=== PATIENT | female | born 1955 | race Caucasian/White ===

== ENCOUNTER 2024-03-12 17:04 | Emergency (ER) | payer OTHER, SELFPAY ==
[2024-03-12 17:12] VITALS: BP 138/71
[2024-03-12] MEDS: AUGMENTIN 875 MG/125 MG 1 TABLET PO (18:58)
--- NOTE | 2024-03-12 19:02 | ED.SKININJ ---
HPI-Injury
General
Chief Complaint: Bite
Source: patient and family
Exam Limitations: none
Time Seen by Provider: 03/12/24 18:10
Nursing documentation reviewed up to this point in time: agreed with
History of Present Illness-Injury
Is this injury a work related problem?: No
Is pt an associate of [facility]?: No
Initial Injury comments:
68-year-old female scratched by cat earlier today claims she was not bitten, has a flap laceration to extensor surface of her left index finger puncture type wounds on the volar surface of her right forearm also puncture on her left wrist no fever
positive swelling no drainage has been bitten previously which got infected again she claims she was not bitten today to scratch she is unsure of her last tetanus but does not want that to be updated
Past History
Past History
ED Past Medical History: Hypercholesterolemia (diet controlled); Negative CAD, IDDM or NIDDM
Social History
Tobacco: Non-smoker
Alcohol: None
Drug: None
Living: with family
Employment: Employed
Family History
Family History: CAD (dad with MA @ 55.)
Review of Systems
Review of Systems
All Other Systems: Not applicable
Constitutional: Denies fever or fatigue
Musculoskeletal: Reports joint pain and edema
Skin: Reports other (Laceration)
Hematologic/Lymphatic: Reports no symptoms
Phy Exam
Physical Exam
Physical Exam:
Physical Exam
General: no apparent distress, not acutely ill
Neck: No jaundice
Heart: s1/s2 regular rate and rhythm, no murmur. equal radial pulses.
Lungs: no acute respiratory distress. clear bilaterally
Neuro: alert and oriented. no focal neurological deficits
Skin: no rash
Psychiatric: well kept. interactive and cooperative
Extremities: Left index finger 1.5 cm flap laceration on the extensor surface with full range of motion puncture type wounds on the left wrist and right forearm
Course
Orders/Labs/Results
Orders:
Orders
03/12/24 17:18
CR Hand - Left 2 Views Urgent
Comment:
Reason For Exam: lac
CR Wrist - Right Min 2 Views Urgent
Comment:
Reason For Exam: swelling
03/12/24 18:40
Amoxicillin 875 mg/Clav 125 mg [Augmentin 875 mg/125 mg] 1 tablet PO NOW STA
Vital Signs
Initial and Last Documented VS:
Initial Vital Signs
Temp Pulse Resp BP Pulse Ox
98.1 F 60 20 138/71 96
03/12/24 17:12 03/12/24 17:12 03/12/24 17:12 03/12/24 17:12 03/12/24 17:12
Last Documented Vital Signs
Temp Pulse Resp BP Pulse Ox
98.1 F 60 20 138/71 96
03/12/24 17:12 03/12/24 17:12 03/12/24 17:12 03/12/24 17:12 03/12/24 17:12
Procedures
Digital Block
Location of injection for digital block: base of digit
Indiction for Digital Block: other (Irrigation)
Type of anesthesia: 1% Lidocaine w/o EPI
Additional information:
2 cc of 1% lidocaine without epi at the base of the left index finger, all wounds were subsequently copiously irrigated
*Critical Care Note
Total Time (30-74mins, 75-104mins- exclusive of procedures): Not Applicable
Update Note
Update Note:
Update, flap laceration no obvious tendon injury, is on her hand will not close, due to concern that it could have entrapped microorganisms, patient politely refused tetanus, up-to-date reviewed, cat scratch will be treated with Zithromax, cat bites
will be treated with Augmentin, again patient is certain that there was a scratch notably nonetheless I think he should treat for both close notably the wounds were copiously irrigated and dressed patient clearly instructed to return to the ER for
worsening symptoms
ED Attending Note
-
Portions of this chart may have been created with voice recognition software.� Occasional wrong word or��sound alike� substitutions may have occurred due to the inherent limitations of voice recognition software.
Discharge Plan
Departure
Patient Disposition: Home (Routine Discharge)
Date of Disposition: 03/12/24
Time of Disposition: 18:40
Patient with high blood pressure during this ER visit?: No
Condition: Good
Covid-19: Not Applicable
Discharge Problem:
Cat scratch
Instructions: Animal Bites (DC), Wound Care (DC), Splint Care
Prescriptions:
New
amoxicillin-pot clavulanate 875-125 mg tablet
1 tab PO BID Qty: 20 0RF
ibuprofen 400 mg tablet
400 mg PO Q8H PRN (Reason: fever or pain) Qty: 20 0RF
azithromycin [Zithromax Z-Rex] 250 mg tablet
250 mg PO DAILY 6 Days Qty: 6 0RF
No Action
amoxicillin-pot clavulanate 1 TABLET tablet
1 tab PO Q12 Qty: 20 0RF
ondansetron 4 mg Tablet,Disintegrating
4 mg PO TIDPRN PRN (Reason: nausea/vomiting) Qty: 14 0RF
benzonatate 100 mg capsule
100 mg PO TID PRN (Reason: cough) Qty: 20 0RF
Referrals:
Tom Lin MD [Active] -
Activity Restrictions/Additional Instructions:
Keep your wounds covered, for the next 2 days then wash with soap and water antibiotics as prescribed return to the ER for increased drainage, fever or redness or any other concerns
Interventions
Interventions:
*Risk Screen - Suicide Last Done: 03/12/24 17:12
*General Assessment Last Done: 03/12/24 17:12
*Neglect/Abuse Screening Last Done: 03/12/24 17:12
ED-Musculoskeletal Assessment Last Done: 03/12/24 19:00
ED-Skin Assessment Last Done: 03/12/24 19:00
Discharge Date and Time
Print Language: [id number]
== END 2024-03-12 19:20 | disposition home or self-care (01) ==
LOC: EMR 17:04
PROVIDERS: EMERGENCY PHYSICIAN Emergency Medicine; FAMILY PHYSICIAN Internal Medicine
DX: S61.211A Laceration without foreign body of left index finger without damage to nail, initial encounter (principal); S51.831A Puncture wound without foreign body of right forearm, initial encounter; W55.03XA Scratched by cat, initial encounter; E78.00 Pure hypercholesterolemia, unspecified; Z82.49 Family history of ischemic heart disease and other diseases of the circulatory system
CPT/HCPCS: 99283; 73100; 73120